=== PATIENT | male | born 1940 | race Caucasian/White ===

== ENCOUNTER 2017-11-05 09:13 | Emergency (ER) | payer MEDICARE, OTHER ==
--- NOTE | 2017-11-05 10:35 | EDM.PDOC ---
ED HPI GENERAL MEDICAL PROBLEM - General Chief Complaint: Laceration Stated Complaint: RT RING FINGER LAC Time Seen by Provider: 11/05/17 09:26 Source of Information: Reports: Patient, Family () History Limitations: Reports: No Limitations - History of Present Illness INITIAL COMMENTS - FREE TEXT/NARRATIVE: The patient states that he cut the dorsal aspect of his right fourth finger when he slipped while using a band saw in his home shop yesterday. He states that the wound was cleaned at the time with hydrogen peroxide and Neosporin. The patient is otherwise uninjured. The patient's last tetanus vaccination was less than one year ago. The patient's PCP is Dr. Collado. - Related Data Allergies Allergy/AdvReac Type Severity Reaction Status Date / Time No Known Allergies Allergy Verified 11/05/17 09:28 Home Meds: Home Meds . [No Known Home Meds] 11/05/17 [History] Past Medical History HEENT History: Reports: Impaired Vision Cardiovascular History: Reports: Hypertension Gastrointestinal History: Reports: GERD Social & Family History - Tobacco Use Smoking Status *Q: Never Smoker Second Hand Smoke Exposure: No - Caffeine Use Caffeine Use: Reports: Coffee - Recreational Drug Use Recreational Drug Use: No ED ROS GENERAL - Review of Systems Review Of Systems: ROS reveals no pertinent complaints other than HPI. ED EXAM, SKIN/RASH Exam: See Below Exam Limited By: No Limitations General Appearance: Alert, WD/WN, No Apparent Distress Extremities: Other (There is an approximately 2.5 cm curvilinear laceration on the dorsal aspect of the right fourth finger extending from the lateral aspect of the finger, just distal to the DIP joint, and extending medially and distally to the medial aspect of the finger, proximal to the nailbed. The wound appears to be clean. Neurovascular status of the finger is intact.) Course - Vital Signs Last Recorded V/S: Last Vital Signs Temp 36.3 C 11/05/17 09:27 Pulse 71 11/05/17 09:27 Resp 17 11/05/17 09:27 BP 158/112 H 11/05/17 09:27 Pulse Ox 96 11/05/17 09:27 - Re-Assessments/Exams Free Text/Narrative Re-Assessment/Exam: 11/05/17 10:31 The patient suffered an approximately 2.5 cm to the dorsomedial aspect of his distal right fourth phalanx, yesterday. Because the wound is well over 6 to 8 hours old, suturing is not recommended. I'm recommending that the patient keep the wound clean with ordinary soap and water, and apply a fresh bandage daily, to repeat if the wound or bandage gets dirty or wet. At this time, I am not recommending antibiotics, however, I did stress to the patient that should signs of infection develop, such as swelling, erythema, significant pain, or purulent drainage, that he be seen either back here in the ED, or by his PCP, Dr. Collado. Departure - Departure Time of Disposition: 10:33 Disposition: Home, Self-Care 01 Condition: Good Clinical Impression: Laceration of right ring finger - Discharge Information Instructions: Laceration Care, Adult, [id number] Referrals: Juan Collado MD [Primary Care Provider] - Forms: ED Department Discharge Additional Instructions: You were seen in the emergency room after cutting your right ring finger yesterday. Unfortunately, your wound is too old to suture. We recommend that you keep your wound clean with ordinary soap and water. Pat dry, then apply a clean, dry bandage, daily. If your wound or the bandage becomes dirty or wet, re-clean the wound, and apply a new clean, dry bandage. It is unlikely that the wound will become infected, however, if the wound develops significant swelling, redness, pain, or drainage, your wound needs to be reevaluated, either back in the ER, or per your PCP, Dr. Collado.
== END 2017-11-05 10:47 | disposition home or self-care (01) ==
LOC: JD.ED 09:13
DX: S61.214A Laceration without foreign body of right ring finger without damage to nail, initial encounter (principal); I10 Essential (primary) hypertension; W45.8XXA Other foreign body or object entering through skin, initial encounter
CPT/HCPCS: 99282; 99283

== ENCOUNTER 2020-08-24 15:39 | Emergency (ER) | payer MEDICARE, OTHER ==
[2020-08-24] MEDS ORDERED: Sodium Chloride 0.9% 10 ML Syringe FLUSH PRN (16:22)
--- NOTE | 2020-08-24 16:25 | EDM.PDOC ---
ED HPI GENERAL MEDICAL PROBLEM - General Chief Complaint: Respiratory Problem Stated Complaint: COVID SX Time Seen by Provider: 08/24/20 16:06 Source of Information: Reports: Patient, Family (daughter), RN Notes Reviewed History Limitations: Reports: No Limitations - History of Present Illness INITIAL COMMENTS - FREE TEXT/NARRATIVE: Patient is a 79-year-old male who presents to the ED for evaluation of his suspected COVID. The patient has some dementia, and is stating that he is feeling well other than a headache he had a few days ago, for which he took aspirin and it got better. The triage was also completed and gone through with the daughter, and she states that her mother has been home ill with cold-like symptoms, and will not go to the doctor. She states that her father, the patient, has had weakness feelings, fatigue not really eating well for the past 3 days. She states he did complain of a sore throat to her as well. He has not had any fever at home, his temperature at time of triage is 96.0 F, respiratory rate is 16, O2 sats are 97% on room air. He is not complaining of any fevers or chills, cough or shortness of breath, nausea/vomiting/diarrhea. States he did smoke, but did quit 10 years ago. He states he has been eating at home, meat/potatoes/eggs, or whenever his likes to cook. His primary care provider is Dr. Ann. Treatments MATCHER: Reports: Other (see below) Other Treatments MATCHER: unsure - Related Data Allergies Allergy/AdvReac Type Severity Reaction Status Date / Time No Known Allergies Allergy Verified 11/05/17 09:28 Home Meds: Home Meds . [No Known Home Meds] 11/05/17 [History] Past Medical History HEENT History: Reports: Impaired Vision Cardiovascular History: Reports: Hypertension Gastrointestinal History: Reports: GERD Psychiatric History: Reports: Dementia Social & Family History - Tobacco Use Smoking Status *Q: Never Smoker - Caffeine Use Caffeine Use: Reports: Coffee - Recreational Drug Use Recreational Drug Use: No ED ROS GENERAL - Review of Systems Review Of Systems: Comprehensive ROS is negative, except as noted in HPI. ED EXAM, GENERAL - Physical Exam Exam: See Below Exam Limited By: No Limitations General Appearance: Alert, WD/WN, No Apparent Distress Eye Exam: Bilateral Eye: EOMI, Normal Inspection, PERRL Head: Atraumatic, Normocephalic Neck: Normal Inspection Respiratory/Chest: No Respiratory Distress, Lungs Clear, Normal Breath Sounds, No Accessory Muscle Use, Chest Non-Tender Cardiovascular: Normal Peripheral Pulses, Regular Rate, Rhythm, No Murmur Extremities: Normal Inspection, Normal Capillary Refill Neurological: Alert, Oriented, Normal Cognition, No Motor/Sensory Deficits Psychiatric: Normal Affect, Normal Mood Skin Exam: Warm, Dry, Intact, Normal Color, No Rash Course - Vital Signs Last Recorded V/S: Last Vital Signs Temp 96 F L 08/24/20 15:50 Pulse 70 08/24/20 15:50 Resp 16 08/24/20 15:50 BP 156/97 H 08/24/20 15:50 Pulse Ox 97 08/24/20 15:50 - Orders/Labs/Meds Orders: Active Orders 24 hr Category Date Time Status Chest 1V Frontal [CR] Stat Exams 08/24/20 16:21 Taken Peripheral IV Insertion Adult [OM.PC] Routine Oth 08/24/20 16:23 Ordered Labs: Laboratory Tests 08/24/20 08/24/20 08/24/20 Range/Units 16:21 16:45 16:45 WBC 3.92 L (4.23-9.07) K/mm3 RBC 6.24 H (4.63-6.08) M/mm3 Hgb 16.8 (13.7-17.5) gm/dl Hct 50.5 (40.1-51.0) % MCV 80.9 (79.0-92.2) fl MCH 26.9 (25.7-32.2) pg MCHC 33.3 (32.2-35.5) g/dl RDW Std Deviation 44.0 H (35.1-43.9) fL Plt Count 202 (163-337) K/mm3 MPV 8.6 L (9.4-12.3) fl Neutrophils % (Manual) 51 (40-60) % Band Neutrophils % 0 (0-10) % Lymphocytes % (Manual) 40 (20-40) % Atypical Lymphs % 1 % Monocytes % (Manual) 7 (2-10) % Eosinophils % (Manual) 0 L (0.8-7.0) % Basophils % (Manual) 1 (0.2-1.2) Platelet Estimate Adequate RBC Morph Comment Normal PT (9.7-11.7) SECONDS INR APTT (22-31) SECONDS Sodium (136-145) mEq/L Potassium (3.5-5.1) mEq/L Chloride (98-107) mEq/L Carbon Dioxide (21-32) mEq/L Anion Gap (5-15) BUN (7-18) mg/dL Creatinine (0.7-1.3) mg/dL Est Cr Clr Drug Dosing mL/min Estimated GFR (MDRD) (>60) mL/min BUN/Creatinine Ratio (14-18) Glucose (83-115) mg/dL Calcium (8.5-10.1) mg/dL Magnesium (1.8-2.4) mg/dl Ferritin (26-388) ng/ml Total Bilirubin (0.2-1.0) mg/dL AST (15-37) U/L ALT (16-63) U/L Alkaline Phosphatase (46-116) U/L Lactate Dehydrogenase (85-227) U/L C-Reactive Protein 1.6 H* (<1.0) mg/dL Total Protein (6.4-8.2) g/dl Albumin (3.4-5.0) g/dl Globulin gm/dL Albumin/Globulin Ratio (1-2) SARS-CoV-2 RNA (LUIS ANTONIO) Positive H (NEGATIVE) 08/24/20 08/24/20 08/24/20 Range/Units 16:45 16:45 16:45 WBC (4.23-9.07) K/mm3 RBC (4.63-6.08) M/mm3 Hgb (13.7-17.5) gm/dl Hct (40.1-51.0) % MCV (79.0-92.2) fl MCH (25.7-32.2) pg MCHC (32.2-35.5) g/dl RDW Std Deviation (35.1-43.9) fL Plt Count (163-337) K/mm3 MPV (9.4-12.3) fl Neutrophils % (Manual) (40-60) % Band Neutrophils % (0-10) % Lymphocytes % (Manual) (20-40) % Atypical Lymphs % % Monocytes % (Manual) (2-10) % Eosinophils % (Manual) (0.8-7.0) % Basophils % (Manual) (0.2-1.2) Platelet Estimate RBC Morph Comment PT 11.5 (9.7-11.7) SECONDS INR 1.08 APTT 30 (22-31) SECONDS Sodium 141 (136-145) mEq/L Potassium 3.6 (3.5-5.1) mEq/L Chloride 105 (98-107) mEq/L Carbon Dioxide 27 (21-32) mEq/L Anion Gap 12.6 (5-15) BUN 16 (7-18) mg/dL Creatinine 1.1 (0.7-1.3) mg/dL Est Cr Clr Drug Dosing 63.92 mL/min Estimated GFR (MDRD) > 60 (>60) mL/min BUN/Creatinine Ratio 14.5 (14-18) Glucose 91 (83-115) mg/dL Calcium 8.2 L (8.5-10.1) mg/dL Magnesium 2.1 (1.8-2.4) mg/dl Ferritin 160 (26-388) ng/ml Total Bilirubin 0.7 (0.2-1.0) mg/dL AST 20 (15-37) U/L ALT 21 (16-63) U/L Alkaline Phosphatase 46 (46-116) U/L Lactate Dehydrogenase 175 (85-227) U/L C-Reactive Protein (<1.0) mg/dL Total Protein 7.4 (6.4-8.2) g/dl Albumin 3.3 L (3.4-5.0) g/dl Globulin 4.1 gm/dL Albumin/Globulin Ratio 0.8 L (1-2) SARS-CoV-2 RNA (LUIS ANTONIO) (NEGATIVE) Meds: Medications Discontinued Medications Generic Name Dose Route Start Last Admin Trade Name Freq PRN Reason Stop Dose Admin Sodium Chloride 10 ml 08/24/20 16:22 08/24/20 17:08 Saline Flush FLUSH 10 ml ASDIRECTED PRN Administration Keep Vein Open - Re-Assessments/Exams Free Text/Narrative Re-Assessment/Exam: 08/24/20 16:25 Patient presents to the ED for evaluation of his suspected COVID symptoms. Patient is not exhibiting much of this at the time of exam in triage. He has normal stable vital signs. We will get some basic labs, 1 hour coronavirus test to rule in or rule out the possibility of COVID and a chest x-ray for evaluation. 08/24/20 16:59 Chest x-ray is within normal limits, there is no acute findings appreciated. 08/24/20 17:43 The patient's COVID screen was positive. Other labs are pending, patient is anxious to get home, the daughter is willing to take him home at this time. We will discharge with general recommendations. Departure - Departure Time of Disposition: 17:44 Disposition: Home, Self-Care 01 Condition: Good Clinical Impression: COVID-19 - Discharge Information *PRESCRIPTION DRUG MONITORING PROGRAM REVIEWED*: No *COPY OF PRESCRIPTION DRUG MONITORING REPORT IN PATIENT JOCELYN: No Instructions: COVID-19 Frequently Asked Questions, Prevent the Spread of COVID- 19 if You Are Sick - [facility] Referrals: Gus Ann MD [Primary Care Provider] - Forms: ED Department Discharge Additional Instructions: You were seen in the ER today for ongoing and/or worsening respiratory symptoms. Your chest x-ray showed no signs of pneumonia at this time. Your oxygen levels were great at 96-97% on room air. Your other laboratory evaluation was unremarkable, some of the lab values were elevated, but these are more commonly elevated with a COVID-19 infection. These are not worrisomely elevated. At this time we did test you for COVID-19. You did test positive for COVID-19 at today's visit. Please try to increase your oral fluid intake, and eat multiple small meals throughout the day, to keep yourself healthy. You need to keep yourself nourished in order to fight off this disease. You can try a liquid diet like gatorade/powerade as well to get your electrolytes. You may take 500 mg Tylenol every hours 6 hours for pain/fever relief. Do not exceed 4000 mg Tylenol in a 24-hour time span. However, running a fever is your body's natural response to illness, and it allows the body to develop antibodies to disease, we are recommending trying to limit the use of Tylenol as much as possible to allow your body's natural immune response. Recommend you obtain a pulse oximeter and monitor your oxygen levels at home, you should place the monitor on your finger, and sit in a calm, quiet position for a few minutes and then record the number that is on the screen. If this consistently below 90% on room air without movement, this would be cause for concern to come back to the hospital for further management of your COVID-19 disease. Sepsis Event Note (ED) - Evaluation Sepsis Screening Result: No Definite Risk - Focused Exam Vital Signs: Vital Signs Temp Pulse Resp BP Pulse Ox 08/24/20 15:50 96 F L 70 16 156/97 H 97 - My Orders Last 24 Hours: My Active Orders 08/24/20 16:21 Chest 1V Frontal [CR] Stat 08/24/20 16:23 Peripheral IV Insertion Adult [OM.PC] Routine - Assessment/Plan Last 24 Hours: My Active Orders 08/24/20 16:21 Chest 1V Frontal [CR] Stat 08/24/20 16:23 Peripheral IV Insertion Adult [OM.PC] Routine
--- NOTE | 2020-09-20 15:30 | CR ---
PROCEDURE INFORMATION: Exam: XR Chest, 1 View Exam date and time: 08/24/2020 4:09 PM Age: 79 years old Clinical indication: Chest pain; Patient HX: Covid suspect TECHNIQUE: Imaging protocol: XR of the chest Views: 1 view. COMPARISON: No relevant prior studies available. FINDINGS: Lungs: Unremarkable. No consolidation. Pleural space: Unremarkable. No pleural effusion. No pneumothorax. Heart/Mediastinum: Unremarkable. No cardiomegaly. Bones/joints: Unremarkable. IMPRESSION: No acute findings. Thank you for allowing us to participate in the care of your patient. Dictated and Authenticated by: Gaurang Palacios MD 09/19/2020 5:30 PM Central Time ([place] & [place]) [facility]
== END 2020-08-24 18:00 | disposition home or self-care (01) ==
LOC: JD.ED 15:39
DX: U07.1 COVID-19 (principal); I10 Essential (primary) hypertension; F03.90 Unspecified dementia, unspecified severity, without behavioral disturbance, psychotic disturbance, mood disturbance, and anxiety
CPT/HCPCS: 36415; 71045; 80053; 82728; 83615; 83735; 85007; 85027; 85610; 85730; 86140; 99285; U0002; 99283

== ENCOUNTER 2022-11-06 15:24 | Emergency (ER) | payer MEDICARE | END 2022-11-06 17:57 | disposition home or self-care (01) | LOC: JD.ED 15:24 | DX: R41.0 Disorientation, unspecified (principal); I10 Essential (primary) hypertension; G30.9 Alzheimer's disease, unspecified; F02.80 Dementia in other diseases classified elsewhere, unspecified severity, without behavioral disturbance, psychotic disturbance, mood disturbance, and anxiety; Z79.899 Other long term (current) drug therapy | CPT/HCPCS: 36415; 70450; 72100; 80053; 85025; 86140; 99285 ==